=== PATIENT | female | born 1955 | race Caucasian/White ===

== ENCOUNTER → 2017-01-05 | Outpatient (CLI) | payer OTHER ==
[~2017-01-05] MED LIST: BUSP15TA37 PO; CALC-603 PO; DENO60DI PO; DULO60CA56 PO; HYDR-2164 PO; HYDR30CR53 TD; MULT-1050 PO; OMEP20CA81 PO; ONDA4TAB7 PO; POTA-81 PO; SERT100T12 PO; TRAZ-56 PO; [UNRECOGNIZED DRUG - CODE] PO
== END ==
LOC: WC.BC 10:49
DX: Z12.31 Encounter for screening mammogram for malignant neoplasm of breast (principal); C50.911 Malignant neoplasm of unspecified site of right female breast; Z90.11 Acquired absence of right breast and nipple; Z98.82 Breast implant status
CPT/HCPCS: 77063; G0202